=== PATIENT | female | born 1965 | race Hispanic/Latino ===

== ENCOUNTER 2019-08-28 11:21 | Outpatient (CLI) | payer OTHER ==
--- NOTE | 2019-08-28 12:03 | XRay Report ---
LUMBAR SPINE 3 VIEWS INDICATION: Low back pain. History of lower back injury in 2016. COMPARISON: No relevant prior imaging study available. FINDINGS: VERTEBRAE: No acute fracture. Normal alignment. DISC SPACES: Mild discogenic degenerative changes are seen at L3-L4 and L4-L5. FACET JOINTS: There is multilevel facet hypertrophy. SOFT TISSUES: No significant abnormality. ADDITIONAL FINDINGS: No additional significant findings. IMPRESSION: 1. No acute findings. 2. Mild to moderate lumbar spondylosis. Signer Name: Rome Eden MD Signed: 08/28/2019 11:59 AM Workstation Name: [email or web address]
== END 2019-08-28 11:22 | disposition home or self-care (01) ==
LOC: XRAY 11:21
PROVIDERS: ATTEND Internal Medicine
DX: M47.816 Spondylosis without myelopathy or radiculopathy, lumbar region (principal); E11.9 Type 2 diabetes mellitus without complications; I10 Essential (primary) hypertension; E78.00 Pure hypercholesterolemia, unspecified
CPT/HCPCS: 72100